=== PATIENT | male | born 1970 | race Caucasian/White ===

== ENCOUNTER → 2017-02-12 | Outpatient (REF) | payer OTHER | LOC: M SFHCLERA 12:48 | PROVIDERS: ATTEND Physician Assistant | DX: J02.9 Acute pharyngitis, unspecified (principal); R10.9 Unspecified abdominal pain ==

== ENCOUNTER → 2019-12-20 | Outpatient (REF) | payer OTHER | LOC: M SFHCRHEU 11:05 | PROVIDERS: ATTEND Internal Medicine | DX: M06.4 Inflammatory polyarthropathy (principal) ==

== ENCOUNTER → 2019-12-20 | Outpatient (CLI) | payer BC, OTHER ==
--- NOTE | 2019-12-20 16:17 | REP ---
Bilateral hand radiographs: Eight views. History: Inflammatory polyarthritis. Pain bilaterally, right worse than left. Findings: Four views of the right hand demonstrate overall normal mineralization. There is some joint space narrowing and spur formation at the 3rd MCP joint. Minimal spurring is seen at the 4th MCP joint of the right hand. There are osteoarthritic changes with spurring at the DIP joints of the long and ring finger as well on the right. There is mild spurring at the first metacarpal phalangeal and the first IP joint. Fragmented spurring is seen at the dorsal aspect of the first IP joint. On the left, there is overall normal mineralization. There is some chondrocalcinosis in the ulnar aspect of the carpal articulation. There is old post-traumatic deformity of the ulnar aspect of the distal end of the first metacarpal at the MCP joint of the thumb with a fragmented ossicle in this location. This is separate from the sesamoid bones at this articulation. There is minimal spurring at the IP joint of the thumb. There is mild DIP joint spurring on the lateral radiograph at the long and ring finger. Impression: Mild osteoarthritic changes. 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 Electronically Signed by Julian Hernandez MD 12/20/2019 08:09 P
== END ==
LOC: M RAD 11:51
PROVIDERS: ATTEND Internal Medicine
DX: M06.4 Inflammatory polyarthropathy (principal)

== ENCOUNTER → 2022-02-17 | Outpatient (CLI) | payer BC, OTHER | LOC: M WUC 11:42 | PROVIDERS: ATTEND Nurse Practitioner Family | DX: Z01.811 Encounter for preprocedural respiratory examination (principal) ==

== ENCOUNTER → 2024-06-12 | Outpatient (REF) | payer BC ==
[2024-06-12 16:38] LABS: BASO # 0.1 10^3/uL (0.0-0.2); EOS # 0.1 10^3/uL (0.0-0.5); EOS % 1.3 % (0.0-3.0); HEMATOCRIT 44.3 % (42.0-52.0); HEMOGLOBIN 15.1 g/dl (13.5-17.5); LYMPH # 3.1 10^3/uL (1.5-5.0); LYMPH % 36.7 % (24.0-44.0); MEAN CORPUSCULAR HEMOGLOBIN 33.4 pg (27.0-33.0); MEAN CORPUSCULAR HGB CONC 34.1 g/dl (32.0-36.5); MONO # 1.3 10^3/uL (0.0-0.8); MONO % 15.5 % (2.0-8.0); NEUTROPHILS # 3.8 10^3/uL (1.5-8.5); NEUTROPHILS % 45.4 % (36.0-66.0); PLATELET COUNT, AUTOMATED 254 10^3/uL (150-450); RED BLOOD COUNT 4.52 10^6/uL (4.30-6.10); WHITE BLOOD COUNT 8.3 10^3/uL (4.0-10.0)
[2024-06-12 16:44] LABS: ERYTHROCYTE SEDIMENTATION RATE 14 mm/hr (0-20)
[2024-06-12 16:56] LABS: C REACTIVE PROTEIN QUANTITATIV < 0.40 MG/DL (<1.0)
[2024-06-12 16:57] LABS: ALKALINE PHOSPHATASE 142 U/L (46-116); ALT/SGPT 43 U/L (7.0-40); AST/SGOT 25 U/L (<34); BILIRUBIN,TOTAL 0.5 MG/DL (0.3-1.2); BLOOD UREA NITROGEN 19 MG/DL (9-23); CALCIUM LEVEL 9.2 MG/DL (8.5-10.1); CARBON DIOXIDE LEVEL 25 MMOL/L (20-31); CHLORIDE LEVEL 108 MMOL/L (98-107); CREATININE FOR GFR 1.01 MG/DL (0.70-1.30); GLOMERULAR FILTRATION RATE > 60.0 (>56); GLUCOSE, FASTING 140 MG/DL (60-100); POTASSIUM SERUM 4.2 MMOL/L (3.5-5.1); SODIUM LEVEL 139 MMOL/L (136-145); TOTAL PROTEIN 7.3 G/DL (5.7-8.2)
== END ==
LOC: M SFHCRHEU 14:16
PROVIDERS: ATTEND Internal Medicine Rheumatology
DX: M06.09 Rheumatoid arthritis without rheumatoid factor, multiple sites (principal)

== ENCOUNTER → 2025-07-24 | Outpatient (REF) | payer BC ==
[2025-07-24 19:35] LABS: BASO # 0.0 10^3/uL (0.0-0.2); BASO % 0.6 % (0.0-1.0); EOS # 0.1 10^3/uL (0.0-0.5); EOS % 1.2 % (0.0-3.0); LYMPH # 2.7 10^3/uL (1.5-5.0); LYMPH % 39.5 % (24.0-44.0); MONO # 1.0 10^3/uL (0.0-0.8); MONO % 14.2 % (2.0-8.0); NEUTROPHILS # 3.0 10^3/uL (1.5-8.5); NEUTROPHILS % 44.2 % (36.0-66.0); PLATELET COUNT, AUTOMATED 295 10^3/uL (150-450)
[2025-07-24 19:46] LABS: ALT/SGPT 36 U/L (7.0-40); AST/SGOT 32 U/L (<34); C REACTIVE PROTEIN QUANTITATIV 0.55 MG/DL (<1.0); CALCIUM LEVEL 8.7 MG/DL (8.5-10.1); CARBON DIOXIDE LEVEL 28 MMOL/L (20-31); CHLORIDE LEVEL 105 MMOL/L (98-107); CREATININE FOR GFR 0.85 MG/DL (0.70-1.30); ERYTHROCYTE SEDIMENTATION RATE 12 mm/hr (0-20); GLOMERULAR FILTRATION RATE > 90.0 (>56); POTASSIUM SERUM 4.1 MMOL/L (3.5-5.1); SODIUM LEVEL 142 MMOL/L (136-145)
== END ==
LOC: M SFHCRHEU 15:48
PROVIDERS: ATTEND Internal Medicine Rheumatology
DX: M06.09 Rheumatoid arthritis without rheumatoid factor, multiple sites (principal)

== ENCOUNTER → 2025-09-05 | Outpatient (CLI) | payer BC | LOC: M CARPUL 09:02 | PROVIDERS: ATTEND Internal Medicine Cardiovascular Disease | DX: R07.9 Chest pain, unspecified (principal) ==